=== PATIENT | female | born 1990 | race Caucasian/White ===

== ENCOUNTER 2017-05-15 05:20 | Emergency (ER) | payer OTHER ==
[~2017-05-15] VITALS: Ht 177.8 cm; Wt 83.9 kg
[2017-05-15 05:37] VITALS: BP 118/70
--- NOTE | 2017-05-15 06:19 | NUR ---
Patient does not wish to proceed with medical care recommended by DR. SAM. Patient given information related to possible complications, up to and including , which could occur as a result of leaving hospital at this time. Patient verbalizes understanding of risks involved leaving against medical advice. Patient has signed AMA form.
== END 2017-05-15 06:19 | disposition left against medical advice (07) ==
LOC: MED 05:20
DX: O21.9 Vomiting of pregnancy, unspecified (principal)
CPT/HCPCS: 99281